=== PATIENT | male | born 1955 | race Caucasian/White ===

== ENCOUNTER 2016-08-29 06:18 | Inpatient (IN) | payer BC ==
[2016-07-31 13:18] VITALS: Ht 180.3 cm; Wt 164.8 kg
--- NOTE | 2016-07-31 13:57 | PAT Medication Instructions ---
Service Date Jul 31, 2016. Current Home Medication List Aspirin (Aspirin), 81 MG PO QAM Hydrochlorothiazide (Hydrochlorothiazide), 25 MG PO QAM Losartan Potassium (Cozaar), 100 MG PO QAM Multiple Vitamin (Multivitamin), 1 TAB PO QAM Placida-3 Fatty Acids (Fish Oil), 1 CAP PO QAM Medication Instructions For Your Scheduled Surgery - Hold the following medications 2 weeks prior to surgery: Placida-3 Fatty Acids (Fish Oil), 1 CAP PO QAM - Hold the following medications the morning of surgery: Hydrochlorothiazide (Hydrochlorothiazide), 25 MG PO QAM Losartan Potassium (Cozaar), 100 MG PO QAM Multiple Vitamin (Multivitamin), 1 TAB PO QAM - Take the following medications the morning of surgery with a sip of water OTHERWISE NOTHING TO EAT OR DRINK AFTER MIDNIGHT: Aspirin (Aspirin), 81 MG PO QAM If you have any questions please call us at [phone] (Adelia Powell PA-C) or [phone] or [phone]
[2016-07-31 14:41] LABS: BASO % 0.4 %; BASO ABS # 0.04 K/uL (0-0.2); COMPLETE YES; EOS % 3.6 %; HEMATOCRIT 47.7 % (42-52); IG% 0.2 %; LYMPH % 16.8 %; LYMPH ABS # 1.64 K/uL (1.2-3.4); MEAN CELL VOLUME 90.9 fL (80-100); MEAN CORPUSCULAR HEMOGLOBIN 32.2 pg (25-34); MEAN CORPUSCULAR HGB CONC 35.4 g/dl (32-36); MEAN PLATELET VOLUME 11.2 fL (7.4-10.4); PLATELET COUNT 116 K/uL (130-400); RED BLOOD COUNT 5.25 M/uL (4.7-6.1); WHITE BLOOD COUNT 9.79 K/uL (4.8-10.8)
[2016-07-31 14:41] LABS: URINE APPEARANCE CLEAR (CLEAR); URINE BILIRUBIN NEG (NEG); URINE COLOR YELLOW; URINE NITRITE NEG (NEG); URINE SPECIFIC GRAVITY 1.019 (1.000-1.030); UROBILINOGEN NEG (NEG); ZZUR CULT IF INDIC CLEAN CATCH NO
[2016-07-31 14:43] LABS: MANUAL MICROSCOPIC REQUIRED? NO; REVIEW REQ? NO
[2016-07-31 14:54] LABS: PARTIAL THROMBOPLASTIN RATIO 1.1; PROTHROMBIN TIME (PATIENT) 10.7 SECONDS (9.0-12.0)
--- NOTE | 2016-07-31 14:54 | DIAGNOSTIC IMAGING REPORT ---
SINGLE VIEW CHEST CLINICAL HISTORY: Preoperative examination. FINDINGS: An AP, portable, upright chest radiograph is obtained. Correlation is made with abdominal CT dated 10/14/2014. The heart is top normal for projection. There is chronic appearing interstitial thickening. No airspace consolidation or pleural effusion is identified. No pneumothorax is seen. The skeletal structures are osteopenic. Degenerative changes noted in the thoracic spine. IMPRESSION: No active disease in the chest. Electronically signed by: Filiberto Jha M.D. 07/31/2016 2:53 PM
[2016-07-31 15:11] LABS: BUN/CREATININE RATIO 11.8 (10-20); CREATININE 1.3 mg/dl (0.60-1.40); POTASSIUM 3.6 mmol/L (3.5-5.1)
[2016-07-31 15:46] LABS: CALCIUM 8.8 mg/dl (8.5-10.1)
--- NOTE | 2016-08-26 10:26 | HISTORY & PHYSICAL EXAMINATION ---
DATE OF ADMISSION: 08/29/2016 CHIEF COMPLAINT: Left knee pain. HISTORY OF PRESENT ILLNESS: Mr. Francois is a 61-year-old male with a 20 year history of pain in his left knee. The patient rates his pain a 2/10. He has pain with his daily activities. He has limited standing and walking tolerance. Pain is worse with weightbearing. The patient has had injections and anti-inflammatories without relief. He has failed conservative treatment and is scheduled for left knee replacement. PAST MEDICAL HISTORY: Hypertension and morbid obesity. He denies heart disease, diabetes or DVT. PAST SURGICAL HISTORY: Left knee arthroscopy. SOCIAL HISTORY: The patient drinks 3 drinks per month. He smokes 1 pack per week. He lives in a 2-story home with his and works as a computer systems manager. FAMILY HISTORY: Negative for DVT. MEDICATIONS: Losartan 100 mg, aspirin 81 mg, hydrochlorothiazide 25 mg, multivitamin 420 mg, fish oil 1000 mg. ALLERGIES: None. REVIEW OF SYSTEMS: See HPI. Ten other systems reviewed, all negative. PHYSICAL EXAMINATION: VITAL SIGNS: Height 6 foot 0, weight 341 pounds, BMI 46. GENERAL: This is a well-developed, well-nourished male who is alert and oriented x3. Mood and affect are appropriate. HEENT: Normocephalic, atraumatic. Mucous membranes are moist and intact. NECK: Supple without lymphadenopathy. HEART: Regular rate and rhythm without murmurs, rubs or gallops. LUNGS: Clear to auscultation without wheezes or rhonchi. ABDOMEN: Soft and nontender. Bowel sounds are equal and active. EXTREMITIES: No ecchymosis, redness or warmth. He has neutral alignment. He has evidence of venous stasis changes distally. Range of motion is from 3-115 degrees. He has +2 laxity. He is neurovascularly intact with +5/5 strength. X-RAY EXAMINATION: AP and lateral views show tricompartmental disease with joint space narrowing and osteophyte formation. IMPRESSION: 1. Degenerative joint disease, left knee. 2. Morbid obesity. PLAN: The patient will be admitted for a left total knee arthroplasty with Legion stems. We will plan on aspirin for DVT prophylaxis. The patient is set up with [facility] for home physical therapy. Referral has been faxed. PCP is [facility].
[2016-08-29] VITALS (9 sets, daily range): BP systolic 130–165; BP diastolic 72–95; PULSE 70–87; TEMP 36.4–37; O2SAT 94–96
[~2016-08-29] VITALS: Ht 180.3 cm; Wt 164.8 kg
[~2016-08-29 06:18] MED LIST: ACETAMINOPHEN 500 MG TAB PO SCH; ASPI1TAB83 PO; CEFAZOLIN 3000 MG/65 ML D5W 65 ML IV SCH; CeleBREX 200 MG CAP PO SCH; DEXAMETHASONE 4 MG TAB PO SCH; FAMOTIDINE 20 MG TAB PO SCH; GABAPENTIN 300 MG CAP PO SCH; HYDR25TA5 PO; LACTATED RINGER'S 1000ML 1,000 ML IV SCH; LACTATED RINGER'S 1000ML IV SCH; LOSA1TAB38 PO; METOCLOPRAMIDE HCL 10 MG TAB PO SCH; MULTTAB58 PO; OMEGCAP2 PO; OXYCODONE HCL 10 MG TABCR (OXYCONTIN) PO SCH; POLYMYXIN B SULFATE 100,000 UNITS in NSS 100ML IR SCH; ROPIVACAINE 5MG/ML 30 ML 150 MG, BUPIVACAINE/EPINEPHR 0.5% MPF 30 ML, KETOROLAC TROMETH... INFIL SCH; VANCOMYCIN INJ 400 MG in NSS 100ML IR SCH
--- NOTE | 2016-08-29 06:41 | History & Physical Bridge Note ---
H&P Re-Evaluation Bridge Note: I have examined the patient, reviewed the History & Physical and in the interval since the performance of the History & Physical I have noted the following changes of clinical significance: No changes noted
[2016-08-29] MEDS ORDERED: BUPIVACAINE 0.5 % 5 MG/1 ML PF 10ML VIAL ONE (07:20)
[2016-08-29] MEDS ORDERED: ASPIRIN 81 MG ECTAB PO ONE (07:21)
[2016-08-29] MEDS: TRANEXAMIC ACID INJ 1,000 MG in SODIUM CHLORIDE 0.9% 100ML 100 ML IV SCH ×2 (07:35→12:59)
[2016-08-29] MEDS ORDERED: FENTANYL CITRATE INJ 50 MCG/1 ML 2 ML VIAL ONE (08:36)
[2016-08-29] MEDS ORDERED: MIDAZOLAM HCL 1 MG/ML 2ML VIAL ONE (08:36)
[2016-08-29] MEDS ORDERED: ORTHO JOINT ANESTHETIC ONE (09:15)
[2016-08-29] MEDS ORDERED: PROPOFOL IV EMULSION 10 MG/ML 20 ML VIAL IV ONE (10:14)
[2016-08-29] MEDS ORDERED: BACITRACIN 50000 UNIT VIAL IR ONE ×2 (10:33→11:23)
--- NOTE | 2016-08-29 11:18 | [facility] Post Operative Brief Note ---
Immediate Operative Summary Operative Date Aug 29, 2016. Pre-Operative Diagnosis Degenerative Joint Disease Left Knee Post-Operative Diagnosis Degenerative Joint Disease Left Knee morbid obesity bmi 50 Procedure(s) Performed Left Total Knee Arthroplasty with Stems Surgeon Dr. Adolfo Lam Scale Tester Surgeon(s) AMINA Fernandez Estimated Blood Loss 5ml Findings SEVERE TRICOMP ACL DEF Specimens A. Left Knee Bone and Tissue Complication(s) None Disposition Recovery Room / PACU
[2016-08-29] MEDS ORDERED: MAGNESIUM HYDROXIDE SUSP 30 ML UDC PO PRN (11:30)
[2016-08-29] MEDS ORDERED: ZOLPIDEM TARTRATE 5 MG TAB PO PRN (11:30)
[2016-08-29] MEDS ORDERED: TRAMADOL HCL 50 MG TAB PO PRN (11:30)
[2016-08-29] MEDS ORDERED: DiphenhydrAMINE HCL 50 MG/ML VIAL IV PRN (11:30)
[2016-08-29] MEDS ORDERED: METOCLOPRAMIDE HCL INJ 5 MG/ML 2 ML VIAL IV PRN (11:30)
[2016-08-29] MEDS ORDERED: SOD PHOSPHATE/SOD BIPHOSPHATE ENEMA 132 ML BTL PR PRN (11:30)
[2016-08-29] MEDS ORDERED: OXYCODONE HCL IR 5 MG TAB (IMMEDIATE RELEASE) PO PRN (11:30)
[2016-08-29] MEDS ORDERED: BISACODYL 10 MG SUPP PR PRN (11:30)
[2016-08-29] MEDS ORDERED: MoRPHine SULFATE 4 MG/ML 1 ML CARP\\VIAL IV PRN (11:30)
[2016-08-29] MEDS ORDERED: ONDANSETRON INJ 2 MG/ML 2 ML VIAL IV PRN (11:30)
[2016-08-29] MEDS ORDERED: ALUMINUM/MAGNESIUM/SIMETH (MAALOX MAX) 30 ML UDC PO PRN (11:30)
[2016-08-29] MEDS ORDERED: POVIDONE-IODINE OP SOLN 30 ML BTL TOP ONE (11:36)
--- NOTE | 2016-08-29 12:22 | DIAGNOSTIC IMAGING REPORT ---
LEFT KNEE 1 OR 2 VIEWS ROUTINE CLINICAL HISTORY: Degenerative arthritis. Postop study COMPARISON: None. DISCUSSION: There are postsurgical changes of a long stem total left knee arthroplasty and patellar resurfacing. The femoral tibial components appear well seated. Overlying skin verito and surgical drains are evident. There is air within soft tissues consistent with recent surgery. Calcified loose bodies are suspected posterior medially. IMPRESSION: Postsurgical changes of a total left knee arthroplasty Electronically signed by: Iain Magaña M.D. 08/29/2016 12:20 PM Dictated Date/Time: 08/29/2016 12:19 PM
--- NOTE | 2016-08-29 12:30 | OPERATIVE REPORT ---
DATE OF OPERATION: 08/29/2016 PREOPERATIVE DIAGNOSES: 1. Degenerative arthritis left knee, severe. 2. Morbid obesity, BMI of 50. POSTOPERATIVE DIAGNOSES: Same. PROCEDURE: Left total knee replacement using revision components. SURGEON: Chito Lam M.D. ENROLLMENT MANAGEMENT COORDINATOR: Brianne Marino PA-C. ANESTHESIA: Spinal. TOURNIQUET TIME: 92 minutes at 275 mmHg. DRAINS: Hemovac x2. CULTURES: None. COMPLICATIONS: None. COMPONENTS USED: David \T\ Nephew Legion knee system: Femur size 7, 6 mm offset, 20 x 120 stem. Tibia size 7, 4 mm offset, 16 x 120 stem. Tibial insert size 11. Patella size 35. NOTE: Brianne Marino PA-C was present and assisted throughout due to the complicated nature of this case. She helped with preparation and setup, first assisted throughout and personally closed the capsule, subcutaneous and skin layers and applied the postoperative dressing. INDICATION FOR PROCEDURE: This patient is a 61-year-old morbidly obese male with severe tricompartmental disease with complete loss of joint space in all 3 compartments. He had failed all attempts at conservative treatment. His knee was severe and was known to be ACL deficient. OPERATION AND FINDINGS: DESCRIPTION: Following satisfactory spinal, the patient was supine. A tourniquet was placed on the lower extremity. The lower extremity was prepared with ChloraPrep and draped sterilely. Following a surgical time-out, a midline incision was made with a median parapatellar arthrotomy. Exposure was difficult because of the patient's large body habitus. This required additional time and effort to expose the knee. He had excessive osteophyte formation throughout and it was apparent that the anterior cruciate ligament was absent. After exposure all femoral osteophytes were removed. Using a 6 degree valgus cut, the distal femur was first trimmed. The IM reaming system was then used on the femur and tibia. The patella was cut and sized to allow better exposure again because of the patient's large body habitus. The femur was then prepared with the IM system. Trim cut was taken and the femur was sized for a size 7 posterior stabilized component using a 6 mm offset. After completion of the femoral cuts attention was turned to the tibia. The tibial resection was completed using the IM system as well and was sized for the size 7 with 4 mm offset. Soft tissue balancing was completed in flexion and extension and a trial reduction with the above-mentioned components showed full extension and flexion to about 110 degrees limited by the size of the patient's leg. The patella tracked well. The trial components were removed. The capsule was prepared with the orthopedic cocktail and after irrigation, the components were cemented using cement restriction plugs and Simplex G cement. A Betadine soak was performed. When the cement had hardened, the Betadine was irrigated. Two drains were placed. The arthrotomy was closed with 1 Vicryl interrupted and reinforced in multiple sites with #2 FiberWire. Following irrigation, the subcutaneous tissues were closed deep with #1 Vicryl and more superficial with 2-0 Vicryl. The skin was closed with surgical verito. A surface wound VAC was applied. The tourniquet was deflated. The patient was returned to his bed in stable condition. I attest to the content of the Intraoperative Record and any orders documented therein. Any exceptio ns are noted below.
[2016-08-29] MEDS: D5W AND 1/2NSS + 20MEQ KCL 1,000 ML IV SCH (13:37)
--- NOTE | 2016-08-29 13:38 | Anesthesiology Progress Note ---
Anesthesia Post Op Note Date & Time Aug 29, 2016 at 13:38 Vital Signs Pain Intensity: 0.0 Vital Signs Past 12 Hours Date Time Temp Pulse Resp B/P Pulse Ox O2 Delivery O2 Flow Rate FiO2 08/29/16 13:17 73 16 146/75 95 Nasal Cannula 2.0 08/29/16 12:45 95 Nasal Cannula 2.0 08/29/16 12:45 36.4 72 18 147/87 94 Nasal Cannula 2.0 08/29/16 12:45 94 Nasal Cannula 2.0 08/29/16 12:32 72 15 95 08/29/16 12:32 73 15 08/29/16 12:29 121/62 08/29/16 12:27 70 14 08/29/16 12:27 70 14 95 08/29/16 12:24 114/67 08/29/16 12:22 75 18 96 08/29/16 12:22 74 18 08/29/16 12:19 113/85 08/29/16 12:17 76 17 08/29/16 12:17 76 17 97 08/29/16 12:16 77 19 95 08/29/16 12:16 36.8 76 19 08/29/16 12:14 115/62 08/29/16 12:11 74 15 08/29/16 12:11 73 15 95 08/29/16 12:09 126/66 08/29/16 12:06 72 39 08/29/16 12:06 72 39 98 08/29/16 12:04 135/64 08/29/16 12:01 72 9 100 08/29/16 12:01 73 9 08/29/16 11:59 132/69 08/29/16 11:56 72 9 99 08/29/16 11:56 72 9 08/29/16 11:54 111/63 08/29/16 11:51 72 11 99 08/29/16 11:51 72 11 08/29/16 11:49 97/68 08/29/16 11:46 73 22 99 08/29/16 11:46 74 22 08/29/16 11:44 115/52 08/29/16 11:41 36.3 75 16 115/52 99 Mask 10 08/29/16 06:51 37 70 20 133/72 95 Room Air Notes Mental Status: alert / awake / arousable, participated in evaluation Pt Amnestic to Procedure: Yes Nausea / Vomiting: adequately controlled Pain: adequately controlled Airway Patency, RR, SpO2: stable & adequate BP & HR: stable & adequate Hydration State: stable & adequate Neuraxial Anesthesia: was administered, sensory block is resolving Anesthetic Complications: no major complications apparent
[2016-08-29] MEDS: ACETAMINOPHEN 500 MG TAB PO SCH ×2 (13:43→22:04)
[2016-08-29] MEDS: LOSARTAN POTASSIUM 50 MG TAB PO SCH ×3 (14:39→14:43)
[2016-08-29] MEDS: HYDROCHLOROTHIAZIDE 25 MG TAB PO SCH (14:40)
[2016-08-29] MEDS: KETOROLAC TROMETHAMINE 30 MG/ML VIAL IV. SCH (18:05)
[2016-08-29] MEDS: CEFAZOLIN IV 2,000 MG in DEXTROSE 5% 50ML 50 ML IV SCH (18:05)
[2016-08-29] MEDS: SENNA 8.6 MG TAB PO SCH (22:02)
[2016-08-29] MEDS: OXYCODONE HCL 10 MG TABCR (OXYCONTIN) PO SCH (22:02)
[2016-08-29] MEDS: ASPIRIN 325 MG ECTAB PO SCH (22:03)
[2016-08-30] MEDS: KETOROLAC TROMETHAMINE 30 MG/ML VIAL IV. SCH ×4 (00:33→18:09)
[2016-08-30] MEDS: D5W AND 1/2NSS + 20MEQ KCL 1,000 ML IV SCH ×2 (00:33→10:13)
[2016-08-30] MEDS: CEFAZOLIN IV 2,000 MG in DEXTROSE 5% 50ML 50 ML IV SCH (02:14)
[2016-08-30 03:16] VITALS: BP 124/73; PULSE 69; TEMP 36.6; O2SAT 94
[2016-08-30] MEDS: ACETAMINOPHEN 500 MG TAB PO SCH ×3 (05:48→22:21)
--- NOTE | 2016-08-30 07:34 | Orthopedic Progress Note ---
Orthopedic Progress Note Date of Service Aug 30, 2016. Subjective Post OP Day: 1 Reports: feeling well, pain controlled w PO medications, Denies: SOB, chest pain , complaints, nausea / vomiting Objective calves soft nontender, N/V intact, dressing C/D/I, A&O x3, toes mobile, hemovac drainage (150 LAST SHIF T) Date Time Temp Pulse Resp B/P Pulse Ox O2 Delivery O2 Flow Rate FiO2 08/30/16 03:16 36.6 69 18 124/73 94 Room Air 08/30/16 00:30 Room Air 08/29/16 23:28 36.5 75 18 145/76 94 Room Air 08/29/16 19:37 37.0 81 18 165/95 95 Nasal Cannula 1.0 08/29/16 15:41 36.6 78 16 130/74 95 Nasal Cannula 1.0 08/29/16 15:35 95 Nasal Cannula 1.0 08/29/16 14:56 37.0 87 15 151/80 94 Nasal Cannula 1.5 08/29/16 13:45 36.4 82 18 164/91 96 Nasal Cannula 2.0 08/29/16 13:17 73 16 146/75 95 Nasal Cannula 2.0 08/29/16 12:45 95 Nasal Cannula 2.0 08/29/16 12:45 36.4 72 18 147/87 94 Nasal Cannula 2.0 08/29/16 12:45 94 Nasal Cannula 2.0 08/29/16 12:32 72 15 95 08/29/16 12:32 73 15 08/29/16 12:29 121/62 08/29/16 12:27 70 14 08/29/16 12:27 70 14 95 08/29/16 12:24 114/67 08/29/16 12:22 75 18 96 08/29/16 12:22 74 18 08/29/16 12:19 113/85 08/29/16 12:17 76 17 08/29/16 12:17 76 17 97 08/29/16 12:16 77 19 95 08/29/16 12:16 36.8 76 19 08/29/16 12:14 115/62 08/29/16 12:11 74 15 08/29/16 12:11 73 15 95 08/29/16 12:09 126/66 08/29/16 12:06 72 39 1/13/17 12:06 72 39 98 08/29/16 12:04 135/64 08/29/16 12:01 72 9 100 08/29/16 12:01 73 9 08/29/16 11:59 132/69 08/29/16 11:56 72 9 99 08/29/16 11:56 72 9 08/29/16 11:54 111/63 08/29/16 11:51 72 11 99 08/29/16 11:51 72 11 08/29/16 11:49 97/68 08/29/16 11:46 73 22 99 08/29/16 11:46 74 22 08/29/16 11:44 115/52 08/29/16 11:41 36.3 75 16 115/52 99 Mask 10 Laboratory Results 24 Hours: Test 08/30/16 04:44 Assessment & Plan Assessment: POD 1 TKA REVISION L MORBID OBESITY Plan: HOME TOMORROW WITH HOME HEALTH Inhouse Planning Pain Management: Celebrex, Oxycontin, PO Tylenol, Oxy IR DVT Prophylaxis: TEDs, SCDs, ASA Discharge Planning Discharge Planning: home with home health Pain Management: Celebrex, Oxycontin, PO Tylenol, Oxy IR DVT Prophylaxis: TEDs, ASA
[2016-08-30 07:36] VITALS: BP 124/72; PULSE 77; TEMP 36.6; O2SAT 94
[2016-08-30 08:02] LABS: HEMATOCRIT 38.9 % (42-52); MEAN CELL VOLUME 87.8 fL (80-100); MEAN CORPUSCULAR HEMOGLOBIN 31.6 pg (25-34); PLATELET COUNT 119 K/uL (130-400); RED BLOOD COUNT 4.43 M/uL (4.7-6.1); WHITE BLOOD COUNT 16.85 K/uL (4.8-10.8)
[2016-08-30 08:27] LABS: BUN/CREATININE RATIO 16.5 (10-20); CALCIUM 8.3 mg/dl (8.5-10.1); CREATININE 1.3 mg/dl (0.60-1.40); POTASSIUM 3.9 mmol/L (3.5-5.1)
[2016-08-30] MEDS: PANTOprazole SOD 40 MG TAB PO SCH (08:32)
[2016-08-30] MEDS: MULTIVITAMIN TAB PO SCH (08:32)
[2016-08-30] MEDS: OXYCODONE HCL 10 MG TABCR (OXYCONTIN) PO SCH ×2 (08:32→20:57)
[2016-08-30] MEDS: ASPIRIN 325 MG ECTAB PO SCH ×2 (08:32→20:54)
[2016-08-30] MEDS: LOSARTAN POTASSIUM 50 MG TAB PO SCH (08:34)
[2016-08-30 12:18] VITALS: BP 115/68; PULSE 64; TEMP 37.1; O2SAT 94
[2016-08-30 15:07] VITALS: BP 105/64; PULSE 63; TEMP 36.8; O2SAT 94
[2016-08-30] MEDS: SENNA 8.6 MG TAB PO SCH (20:55)
[2016-08-30 23:06] VITALS: BP 124/65; PULSE 61; TEMP 36.7; O2SAT 94
[2016-08-31] MEDS: KETOROLAC TROMETHAMINE 30 MG/ML VIAL IV. SCH ×4 (00:05→11:59)
[2016-08-31] MEDS: ACETAMINOPHEN 500 MG TAB PO SCH (05:54)
[2016-08-31 06:30] VITALS: BP 120/73; PULSE 62; TEMP 36.7; O2SAT 95
[2016-08-31] MEDS: ASPIRIN 325 MG ECTAB PO SCH (07:58)
[2016-08-31] MEDS: LOSARTAN POTASSIUM 50 MG TAB PO SCH (07:58)
[2016-08-31] MEDS: HYDROCHLOROTHIAZIDE 25 MG TAB PO SCH (07:58)
[2016-08-31] MEDS: OXYCODONE HCL 10 MG TABCR (OXYCONTIN) PO SCH (08:28)
[2016-08-31] MEDS: MULTIVITAMIN TAB PO SCH (08:28)
[2016-08-31] MEDS: PANTOprazole SOD 40 MG TAB PO SCH (08:29)
--- NOTE | 2016-08-31 10:58 | Orthopedic Progress Note ---
Orthopedic Progress Note Date of Service Aug 31, 2016. Subjective Post OP Day: 2 Reports: feeling well, pain controlled w PO medications, Denies: SOB, calf pain , chest pain, complaints, light headedness, nausea / vomiting Objective calves soft nontender, N/V intact, capillary refill less than 2 sec., dressing C /D/I, A&O x3, toes mobile Date Time Temp Pulse Resp B/P Pulse Ox O2 Delivery O2 Flow Rate FiO2 08/31/16 08:00 Room Air 08/31/16 06:30 36.7 62 16 120/73 95 Room Air 08/31/16 00:12 Room Air 08/30/16 23:06 36.7 61 16 124/65 94 Room Air 08/30/16 15:55 Room Air 08/30/16 15:07 36.8 63 16 105/64 94 Room Air 08/30/16 12:18 37.1 64 18 115/68 94 Room Air Assessment & Plan Assessment: POD 2 Left total knee replacement using revision components MORBID OBESITY Plan: HOME TODAY WITH HOME HEALTH Inhouse Planning Pain Management: Celebrex, Oxycontin, PO Tylenol, Oxy IR DVT Prophylaxis: SESARs SCDs, ASA Discharge Planning Discharge Planning: home with home health Pain Management: Celebrex, Oxycontin, PO Tylenol, Oxy IR DVT Prophylaxis: TEDs, ASA
[2016-08-31] MEDS ORDERED: CLB200 PO (11:00)
[2016-08-31] MEDS ORDERED: ACET-1138 PO (11:00)
[2016-08-31] MEDS ORDERED: ASPEC325 PO (11:00)
[2016-08-31] MEDS ORDERED: OXYSR10 PO (11:00)
[2016-08-31] MEDS ORDERED: ONDA8TAB6 PO (11:00)
[2016-08-31] MEDS ORDERED: RXC5 PO (11:00)
--- NOTE | 2016-08-31 11:02 | Discharge Instructions ---
Discharge Instructions Admission Reason for Admission: Left Knee Degenerative Joint Disease Discharge Discharge Diagnosis / Problem: Left Knee Degenerative Joint Disease Discharge Goals Goal(s): Decrease discomfort, Improve function Activity Recommendations Activity Limitations: as noted below Lifting Limitations: until after follow-up appointment Exercise/Sports Limitations: until after follow-up appointment May Resume Sexual Activity: when tolerated Shower/Bathe: may shower/bathe in 3 days (Keep Prevena dressing on for 7 days.) Driving or Machine Use: When cleared by Dr. Lam's clinic. Weightbearing Status: Left weightbearing (as tolerated) . Instructions / Follow-Up Instructions / Follow-Up ACTIVITY RECOMMENDATIONS: SELF CARE INSTRUCTIONS AFTER TOTAL KNEE REPLACEMENT A. You may need to continue a physical therapy program after discharge from the hospital. There are several options available to you. Your doctor will assist you in selecting the best one for you. 1. An out-patient facility 3 times a week for therapy. 2. Home therapy for 1 to 2 weeks with outpatient therapy to follow. 3. Continue working on all exercises taught by physical therapy three times a day for 20 minutes on non-therapy days. Your goals should be to increase the bending of your knee to 90 degrees and beyond and to fully straighten your knee. Ice and elevate knee after exercise. B. Weight as tolerated with a walker or as instructed by your physician. C. It is okay to shower if minimal to no drainage from incision. No Baths. Do not soak wound. D. Make walking a part of your daily routine. Be up as much as comfortable with rest periods throughout the day. Rest with leg elevation is very important. Use the ice wrap frequently for the first 3-4 weeks. E. There are no restrictions on activities. You may ride in a car, shop, participate in tool lathe operator and all social activities. F. Wear the long elastic stockings (SESAR hose) 20 hours a day for one month after surgery. They can be removed several times a day for laundering and when showering. G. Prevena- This is a large suction dressing covering your incision. This will help pull any excess drainage from the wound and allow your incision to heal properly. You may shower with this if you can keep the unit outside of the shower. If any bleeding or leakage is noted please call your doctor's office. This will remain on your incision for 7 days and then should be removed. This can be done yourself or by the home nursing staff if applicable. The entire unit is disposable once removed. Once removed, keep incision clean and dry. If redness or drainage is noted, please call your surgeon. SPECIAL CARE INSTRUCTIONS: VERY IMPORTANT TO READ AND REVIEW A. Take Coumadin, Xarelto, Aspirin or Lovenox (blood thinning medications) as directed by your doctor. If on Coumadin, have a pro-time (blood test) drawn according to your doctor's instructions. This will tell the doctor how well the Coumadin is thinning your blood. B. There are a few signs you need to watch for after you are home. Call [facility] if you notice any of the followin. Increased severe knee pain. Some pain is expected especially when you exercise. 2. Increased swelling in your leg or knee; pain or swelling of the calf muscle in either lower leg. 3. Any redness or fluid drainage from the incision. 4. Shortness of breath or chest pain. 5. A Temperature of 101 degrees F or greater. C. Please call [facility] at if you have any concerns or questions about your operation or recovery. The doctor or his nurse will return your call promptly. D. You must take antibiotics before dental work, bladder, bowel or other surgery. Your doctor will provide you with a permanent care to carry describing this precaution. FOLLOW UP VISIT: If appointment is not already scheduled: Please call [facility] to make a follow-up appointment for one month after your surgery at . Current Hospital Diet Patient's current hospital diet: Regular Diet Discharge Diet Recommended Diet: Regular Diet Procedures Procedures Performed: Left Total Knee Arthroplasty with Stems Pending Studies Studies pending at discharge: no Medical Emergencies . Who to Call and When: Medical Emergencies: If at any time you feel your situation is an emergency, please call 127 immediately. . Non-Emergent Contact Non-Emergency issues call your: Surgeon Call Non-Emergent contact if: temperature is above 101, your pain is not controlled, wound has increased drainage, wound has increased redness, wound has increased pain . "Provider Documentation" section prepared by Kiran Cheng. VTE Core Measure Inpt VTE Proph given/why not?: Other Anticoagulation (Aspirin), T.E.D. Stockings
[2016-08-31 11:13] VITALS: BP 120/73; PULSE 62; TEMP 36.7; O2SAT 95
[2016-08-31] MEDS ORDERED: CeleBREX 200 MG CAP PO SCH (21:00)
--- NOTE | 2016-09-16 13:11 | DISCHARGE SUMMARY ---
DISCHARGE DIAGNOSIS: Degenerative joint disease left knee. SECONDARY DIAGNOSIS: Morbid obesity, chronic kidney disease. CONSULTS: None. COMPLICATIONS: None. PROCEDURE: The patient underwent a left total knee arthroplasty with stems with Dr. Lam on 08/29/2016. BRIEF HISTORY: Please see previously dictated history and physical. HOSPITAL SUMMARY: The patient was admitted on the above day for the above procedure. Procedure went without complication. Postop day 1, the patient was feeling well without complaints. He denied chest pain or shortness of breath. Vital signs were stable. He was afebrile. Dressing was clean, dry and intact. He was neurovascularly intact. Calves were soft and nontender. The patient began physical therapy per protocol. Postop day 2, the patient was improving. He denied chest pain or shortness of breath. Vital signs were stable. He was afebrile. Dressing was clean, dry and intact with Prevena. He was neurovascularly intact. Calves were soft and nontender. The patient was discharged to home later that day in stable condition. For further review please see the chart. Lab, x-ray data and discharge instructions as per chart.
== END 2016-08-31 13:44 | disposition home health service (06) | DRG 470 ==
LOC: ENRESERVDT → ENRESERVTM → C.ACU 06:18 → C.MSW 11:22
PROVIDERS: ADMIT Orthopaedic Surgery; ATTEND Orthopaedic Surgery
PROC: 0SRD0J9 Replacement of Left Knee Joint with Synthetic Substitute, Cemented, Open Approach (ICD-10-PCS; principal; 2016-08-29 09:10)
DX: M17.12 Unilateral primary osteoarthritis, left knee (principal); Z68.43 Body mass index [BMI] 50.0-59.9, adult; M23.8X2 Other internal derangements of left knee; I12.9 Hypertensive chronic kidney disease with stage 1 through stage 4 chronic kidney disease, or unspecified chronic kidney disease; N18.3 Chronic kidney disease, stage 3 (moderate); E66.01 Morbid (severe) obesity due to excess calories; F17.210 Nicotine dependence, cigarettes, uncomplicated; Z79.82 Long term (current) use of aspirin; Z79.899 Other long term (current) drug therapy

== ENCOUNTER → 2017-12-18 | Outpatient (CLI) | payer OTHER ==
[~2017-12-18] MED LIST changes: +ACET-1138 PO; -ACETAMINOPHEN 500 MG TAB PO SCH; +ASPEC325 PO; -ASPI1TAB83 PO; -CEFAZOLIN 3000 MG/65 ML D5W 65 ML IV SCH; +CLB200 PO; -CeleBREX 200 MG CAP PO SCH; -DEXAMETHASONE 4 MG TAB PO SCH; -FAMOTIDINE 20 MG TAB PO SCH; -GABAPENTIN 300 MG CAP PO SCH; -LACTATED RINGER'S 1000ML 1,000 ML IV SCH; -LACTATED RINGER'S 1000ML IV SCH; -METOCLOPRAMIDE HCL 10 MG TAB PO SCH; -OXYCODONE HCL 10 MG TABCR (OXYCONTIN) PO SCH; +OXYSR10 PO; -POLYMYXIN B SULFATE 100,000 UNITS in NSS 100ML IR SCH; -ROPIVACAINE 5MG/ML 30 ML 150 MG, BUPIVACAINE/EPINEPHR 0.5% MPF 30 ML, KETOROLAC TROMETH... INFIL SCH; +RXC5 PO; -VANCOMYCIN INJ 400 MG in NSS 100ML IR SCH
[2017-12-18 13:43] LABS: ALBUMIN 3.8 gm/dl (3.4-5.0); AST/SGOT 19 U/L (15-37); BLOOD UREA NITROGEN 22 mg/dl (7-18); CALCIUM 9.1 mg/dl (8.5-10.1); CARBON DIOXIDE 34 mmol/L (21-32); CHOLESTEROL 142 mg/dl (0-200); CREATININE 1.57 mg/dl (0.60-1.40); GLUCOSE 143 mg/dl (70-99); POTASSIUM 3.2 mmol/L (3.5-5.1); SODIUM 136 mmol/L (136-145)
[2017-12-18 13:48] LABS: ALKALINE PHOSPHATASE 71 U/L (45-117); ALT/SGPT 37 U/L (12-78); LDL CHOLESTEROL CALCULATED 84 mg/dl; TOTAL PROTEIN 7.6 gm/dl (6.4-8.2)
== END | disposition home or self-care (01) ==
LOC: C.LABPVFM 12-17 08:26
PROVIDERS: ATTEND Family Medicine
DX: I12.9 Hypertensive chronic kidney disease with stage 1 through stage 4 chronic kidney disease, or unspecified chronic kidney disease (principal); E66.9 Obesity, unspecified; N18.3 Chronic kidney disease, stage 3 (moderate); R73.01 Impaired fasting glucose

== ENCOUNTER → 2018-03-17 | Outpatient (CLI) | payer OTHER ==
[2018-03-17 13:13] LABS: ALBUMIN 3.7 gm/dl (3.4-5.0); BLOOD UREA NITROGEN 14 mg/dl (7-18); CALCIUM 8.9 mg/dl (8.5-10.1); CARBON DIOXIDE 27 mmol/L (21-32); CREATININE 1.46 mg/dl (0.60-1.40); GLUCOSE 138 mg/dl (70-99); PHOSPHORUS 2.5 mg/dl (2.5-4.9); SODIUM 137 mmol/L (136-145)
[2018-03-17 13:50] LABS: HEMOGLOBIN A1C 6.4 % (4.5-5.6)
== END | disposition home or self-care (01) ==
LOC: C.LABPVFM 09:20
PROVIDERS: ATTEND Family Medicine
DX: R73.01 Impaired fasting glucose (principal); N18.3 Chronic kidney disease, stage 3 (moderate)